=== PATIENT | female | born 1955 | race Caucasian/White ===

== ENCOUNTER → 2024-09-22 17:05 | Outpatient (REF) | payer OTHER, SELFPAY | LOC: WDC 17:05 | PROVIDERS: ATTENDING PHYSICIAN Family Medicine | DX: Z12.31 Encounter for screening mammogram for malignant neoplasm of breast (principal) | CPT/HCPCS: 77063; 77067 ==

== ENCOUNTER → 2024-10-05 07:52 | Outpatient (REF) | payer OTHER, SELFPAY | LOC: RCS 07:52 | PROVIDERS: ATTENDING PHYSICIAN Internal Medicine Cardiovascular Disease; FAMILY PHYSICIAN Family Medicine | DX: I10 Essential (primary) hypertension (principal); I35.8 Other nonrheumatic aortic valve disorders | CPT/HCPCS: 93306 ==

== ENCOUNTER → 2024-10-07 11:30 | Outpatient (REF) | payer OTHER, SELFPAY | LOC: RAD 11:30 | PROVIDERS: ATTENDING PHYSICIAN Family Medicine; FAMILY PHYSICIAN Family Medicine | DX: M62.838 Other muscle spasm (principal); M54.12 Radiculopathy, cervical region | CPT/HCPCS: 72052 ==